=== PATIENT | male | born 1970 | race Caucasian/White ===

== ENCOUNTER 2022-02-11 12:14 | Emergency (ER) | payer SELFPAY ==
[2022-02-11] MEDS ORDERED: ASPIRIN 325 MG TAB PO ONE (12:45)
--- NOTE | 2022-02-11 13:40 | XRay Report ---
CHEST 2 VIEWS INDICATION / CLINICAL INFORMATION: chest pain. COMPARISON: None available. FINDINGS: SUPPORT DEVICES: None. HEART / MEDIASTINUM: No significant abnormality. LUNGS / PLEURA: The lungs are mildly hyperinflated but otherwise grossly clear. No suggestion for pne umonia, pulmonary edema, or pleural effusion. No pneumothorax. ADDITIONAL FINDINGS: No significant additional findings. IMPRESSION: 1. Mild hyperinflation. Otherwise, no acute pulmonary or pleural disease. Signer Name: Julianne Lainez MD Signed: 02/11/2022 1:36 PM Workstation Name: [id number]
[2022-02-11 16:17] LABS: Basophils % (Auto) 0.3 % (0.0-1.8); Eosinophils % (Auto) 0.4 % (0.0-4.3); Hematocrit 57.9 % (35.5-45.6); Lymphocytes # (Auto) 2.8 K/mm3 (1.2-5.4); Lymphocytes % (Auto) 27.7 % (13.4-35.0); Mean Corpuscular HGB Conc 33 % (32-34); Mean Corpuscular Volume 77 fl (84-94); Monocytes # (Auto) 0.6 K/mm3 (0.0-0.8); Monocytes % (Auto) 5.7 % (0.0-7.3); Red Blood Count 7.58 M/mm3 (3.65-5.03); Red Cell Distribution Width 14.8 % (13.2-15.2)
[2022-02-11 16:26] LABS: Platelet Count 159 K/mm3 (140-440)
[2022-02-11 17:08] LABS: Alanine Aminotransferase 10 units/L (7-56); Albumin 4.3 g/dL (3.9-5); BUN/Creatinine Ratio 19; Blood Urea Nitrogen 17 mg/dL (9-20); Calcium 9.9 mg/dL (8.4-10.2); Hemolysis Index 152
[2022-02-11 19:08] VITALS: BP 112/77
--- NOTE | 2022-02-12 18:16 | Electrocardiograph Report ---
[facility] Test Date: 2022-02-11 Test Time: 12:23:11 Pat Name: TOOTIE CARBAJAL Department: Room: Gender: M Sole Seamer: SHANNA : 1970 Requested By: ED DOC Order Number: [id number] Reading MD: Frank Scott Measurements Intervals [place] Rate: 97 P: -15 MS: 122 QRS: -14 QRSD: 102 T: 24 QT: 389 QTc: 494 Interpretive Statements Sinus rhythm Probable left atrial enlargement Inferior infarct, old No previous ECG available for comparison Electronically Signed On 02-12-2022 18:15:59 EDT by Frank Scott
== END 2022-02-12 13:58 | disposition left against medical advice (07) ==
LOC: ED 12:14
DX: R07.9 Chest pain, unspecified (principal); Z53.21 Procedure and treatment not carried out due to patient leaving prior to being seen by health care provider
CPT/HCPCS: 36415; 71046; 80053; 82805; 84484; 85025; 93005